=== PATIENT | male | born 1965 | race African-American/Black ===

== ENCOUNTER 2022-11-16 06:20 | Day surgery (SDC) | payer OTHER ==
[2022-11-11 13:43] VITALS: BMI 25.1
[2022-11-16] MEDS ORDERED: MIDAZOLAM HCL 2 MG/2 ML SINGLE DOSE VIAL ONE (07:03)
[2022-11-16] MEDS ORDERED: SUCCINYLCHOLINE CHLORIDE 200 MG/10 ML SYRINGE ONE (07:03)
[2022-11-16] MEDS ORDERED: PROPOFOL 40 ML ONE (07:03)
[2022-11-16] MEDS ORDERED: DEXAMETHASONE SOD PHOSPHATE 4 MG/1 ML VIAL ONE (07:04)
[2022-11-16] MEDS ORDERED: ONDANSETRON 4 MG/2 ML VIAL ONE (07:04)
[2022-11-16] MEDS ORDERED: LIDOCAINE HCL/PF 2% SDV 5ML VIAL ONE ×2 (07:04→08:10)
[2022-11-16] MEDS ORDERED: KETOROLAC TROMETHAMINE 30 MG/1 ML VIAL ONE (07:04)
[2022-11-16] MEDS ORDERED: LIDOCAINE HCL 2% (20ML MULTI-DOSE VIAL) ONE ×2 (07:16→07:17)
[2022-11-16 08:34] VITALS: RESP 16; TEMP 96.8
[2022-11-16 09:30] VITALS: BP 131/78; PULSE 65
== END 2022-11-16 09:10 | disposition home or self-care (01) ==
LOC: FASU 06:20
PROVIDERS: ATTEND Orthopaedic Surgery Hand Surgery
PROC: 0JBJ0ZZ Excision of Right Hand Subcutaneous Tissue and Fascia, Open Approach (ICD-10-PCS; principal; 2022-11-16 08:00)
DX: R22.31 Localized swelling, mass and lump, right upper limb (principal)
CPT/HCPCS: 88304-TC